=== PATIENT | male | born 1990 | race Two or more races ===

== ENCOUNTER → 2024-04-19 | Outpatient (CLI) | payer BC, MEDICAID, SELFPAY ==
[2024-04-19 10:44] LABS: Post Vasectomy Sperm Presence No Spermatozoa Seen (No Sperm)
== END | disposition home or self-care (01) ==
PROVIDERS: Referring Provider Urology; Visit Provider Urology
DX: Z30.2 Encounter for sterilization (principal)
CPT/HCPCS: 89310; 89321

== ENCOUNTER 2024-09-18 22:56 | Emergency (ER) | payer BC, SELFPAY ==
[2024-09-18 22:58] VITALS: BMI 26.6
[2024-09-18 23:35] VITALS: BP 147/83; PULSE 63; RESP 18; TEMP 36.6; O2SAT 99
--- NOTE | 2024-09-18 23:44 | EDNOTE_ITS ---
Upper Respiratory Inf. RME/HPI General Chief Complaint: General Adult/Misc Complain Stated Complaint: NOSE SWELLING, HEAD PAIN Time Seen by Provider: 09/18/24 23:12 Source: patient, RN notes reviewed and old records reviewed Arrival date/time: 09/18/24 22:56 Mode of arrival: ambulatory Limitations: no limitations RME / HPI RME / HPI Narrative: 34yom presents to ED for 3-day history of right sided nasal and sinus congestion. Reports redness surrounding right nare. No fever, cough, sob, n/v or dizziness reported. Patient endorses mild sinus headache. No medications or treatments since onset. Related Data Previous Rx's ?Medication ?Instructions ?Recorded tramadol 50 mg tablet 50 mg PO Q8H PRN pain #10 ta bs 09/10/23 fluticasone propionate 50 2 spray intranasal BID #16 g aga 09/18/24 mcg/actuation nasal spray,suspension (Flonase Allergy Relief) mupirocin 2 % topical ointment 1 applic topical BID #1 5 grams 09/18/24 pseudoephedrine HCl 120 mg 120 mg PO Q12H PRN nasal tablet,extended release (Sudafed congestion #12 tabs 12 Hour) Allergies Allergy/AdvReac Type Severity Reaction Status Date / Time No Known Allergies Allergy Verified 09/18/24 22:57 Review of Systems Review of Systems Systems Reviewed: All systems reviewed, normal except as documented Constitutional Constitutional: Denies chills, Denies fever(s) and Reports headache(s) ENT Ears, Nose, Mouth, and Throat: Denies dizziness, Reports headache(s), Reports nasal congestion, Denies neck pain and Reports sinus pain Cardiovascular Cardiovascular: Denies chest pain and Denies dyspnea Respiratory Respiratory: Denies cough and Denies dyspnea Gastrointestinal Gastrointestinal: Denies nausea and Denies vomiting Musculoskeletal Musculoskeletal: Denies neck pain Neurologic Neurologic: Denies dizziness and Reports headache(s) Past Medical History Surgical History OTHER SURGICAL HX: denies pshx Social History SMOKING STATUS: Never smoker SUBSTANCE USE: does not use ALCOHOL: Never Past Medical History Comments PMH COMMENT: denies pmhx ED Exam General Limitations: Present no limitations General appearance: Present alert and in no apparent distress Head Head exam: Present atraumatic and normocephalic Eye Eye exam: Present normal appearance, PERRL and EOMI ENT ENT exam: Present normal oropharynx, mucous membranes moist, TM's normal bilaterally and other (Mild UAC, right maxillary sinus ttp) Neck Neck exam: Present normal inspection and full ROM Chest Chest inspection: Present normal inspection and symmetric chest wall rise Respiratory Respiratory exam: Present normal lung sounds bilaterally and other (No wheezing, rales or rhonchi); Absent respiratory distress Cardiovascular Cardiovascular exam: Present regular rate and normal rhythm Extremities Exam Extremities exam: Present normal inspection and full ROM Neurological Exam Neurological exam: Present alert and oriented X3 Psychiatric Psychiatric exam: Present normal affect and normal mood Skin Skin exam: Present warm, dry, intact and normal color Course Quality Measures none Vital Signs Vital signs: Vital Signs Temperature 98 F 09/18/24 23:35 Pulse Rate 63 09/18/24 23:35 Respiratory Rate 18 09/18/24 23:35 Blood Pressure 147/83 H 09/18/24 23:35 Pulse Oximetry (%) 99 09/18/24 23:35 Oxygen Delivery Method Room Air 09/18/24 23:35 Upper Respiratory Infection MDM Narrative MDM Narrative:: 34yom presents to ED for 3-day history of right sided nasal and sinus congestion. Reports redness surrounding right nare. No fever, cough, sob, n/v or dizziness reported. Patient endorses mild sinus headache. No medications or treatments since onset. Exam findings c/w sinusitis and rhinitis. Patient is well-appearing, afebrile, vitals are stable. Discussed decongestant, nasal rinses, nasal steroid spray, antihistamine use. Motrin/tylenol prn pain. Stable for dc, RTED precautions given. Patient data External records reviewed:: [facility] previous records (12/28/23 ED visit for b/l hydrocele) Clinical information provided by:: patient Social determinants that could affect healthcare access:: other (specify) (poor access to healthcare) Patient has the following chronic illnesses:: none How is presenting disease/condition affected by chronic disease/condition?: no chronic disease Evaluation data The following diagnostics were reviewed and interpreted by me:: other (specify) (none) Lab and/or radiology exams considered but not ordered:: covid/flu: results would not affect treatment plan Interpretation Summary: na Medications / Prescriptions Medications or Prescriptions considered but not ordered:: none Medication administrations:: none Consultations Consultation(s) initiated? (list below): No Diagnosis Upper Respiratory Differential Diagnosis: upper respiratory infection, sinusitis, viral infection, bronchitis, influenza and pharyngitis Most likely diagnosis given after review of the tests above:: sinusitis, rhinitis Admission Indicated Admission indicated?: not indicated Admission Request Was there a request for admission?: No Disposition Plan Disposition Plan: Discharge Discharge Attestation Discharge Attestation: The patient and all family members were given an opportunity to ask questions and understood the discharge instructions. Discharge instructions specifically effects, indications for sooner follow up or return to the emergency department, and the expected course of current diagnosis. Patient condition: Stable Discharge Plan Plan Patient Disposition: HOME (Self Care) Patient condition on transfer: Stable Prescriptions/Referrals Prescriptions/Med Rec: New mupirocin 2 % ointment 1 applic topical BID Qty: 15 0RF fluticasone propionate [Flonase Allergy Relief] 50 mcg/actuation spray,suspension 2 spray intranasal BID Qty: 16 0RF Rx Instructions: administer into each nostril pseudoephedrine HCl [Sudafed 12 Hour] 120 mg tablet extended release 120 mg PO Q12H PRN (Reason: nasal congestion) Qty: 12 0RF No Action tramadol 50 mg tablet 50 mg PO Q8H PRN (Reason: pain) Qty: 10 0RF Problem List Clinical Impression: Infection of nose Patient/Caregiver Discharge Instructions Print Language: Jamaican Stand Alone Forms: Arielle Award Info., Patient Portal Info Letter PA/NARCOTICS AND VICE DETECTIVE Supervising Physician PA/NARCOTICS AND VICE DETECTIVE Supervising Physician: Wilberto
== END 2024-09-19 00:05 | disposition home or self-care (01) ==
LOC: SERX 23:53
PROVIDERS: Emergency Provider Emergency Medicine; PCP Internal Medicine
DX: B99.9 Unspecified infectious disease (principal)
CPT/HCPCS: 99281

== ENCOUNTER 2024-09-21 02:30 | Emergency (ER) | payer BC, SELFPAY ==
[2024-09-21 02:32] VITALS: BMI 26.6
[2024-09-21 02:41] VITALS: BP 120/74; PULSE 63; RESP 16; TEMP 37.4; O2SAT 99
--- NOTE | 2024-09-21 03:10 | PD.EDURI ---
Upper Respiratory Inf. RME/HPI General Chief Complaint: General Adult/Misc Complain Stated Complaint: NOSE INFECTION, CHILLS Time Seen by Provider: 09/21/24 02:52 Source: patient, RN notes reviewed and old records reviewed Arrival date/time: 09/21/24 02:30 Mode of arrival: ambulatory Limitations: no limitations RME / HPI RME / HPI Narrative: 34yom presents to ED for 4-day history of nasal congestion and sinus pain/headache. Patient was evaluated in ED Friday evening for same complaints and treated for sinusitis. Patient has taken 2 doses of antibiotic prior to tonight's visit. He also went to [facility] ED last night for same symptoms and was given the same diagnosis. Patient reports subjective fever and chills while lying in bed [facility], prompting return visit to ED. 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 Related Data Previous Rx's ?Medication ?Instructions ?Recorded tramadol 50 mg tablet 50 mg PO Q8H PRN pain #10 tabs 09/10/23 fluticasone propionate 50 2 spray intranasal BID #16 grams 09/18/24 mcg/actuation nasal spray,suspension (Flonase Allergy Relief) mupirocin 2 % topical ointment 1 applic topical BID #15 grams 09/18/24 pseudoephedrine HCl 120 mg 120 mg PO Q12H PRN nasal 09/18/24 tablet,extended release (Sudafed congestion #12 tabs 12 Hour) Allergies Allergy/AdvReac Type Severity Reaction Status Date / Time No Known Allergies Allergy Verified 09/18/24 22:57 Review of Systems Review of Systems Systems Reviewed: All systems reviewed, normal except as documented Constitutional Constitutional: Reports chills, Reports fever(s) (subjective) and Reports headache(s) (sinus) ENT Ears, Nose, Mouth, and Throat: Denies otalgia, Reports facial pain, Reports headache(s) (sinus), Reports nasal congestion, Denies neck pain, Reports sinus pain, Denies sore throat and Denies vertigo Cardiovascular Cardiovascular: Denies chest pain and Denies dyspnea Respiratory Respiratory: Denies cough and Denies dyspnea Gastrointestinal Gastrointestinal: Denies nausea and Denies vomiting Musculoskeletal Musculoskeletal: Denies neck pain Neurologic Neurologic: Reports headache(s) (sinus) and Denies vertigo Past Medical History Surgical History OTHER SURGICAL HX: denies pshx Social History SMOKING STATUS: Never smoker SUBSTANCE USE: does not use ALCOHOL: Never Past Medical History Comments PMH COMMENT: denies pmhx ED Exam General Limitations: Present no limitations General appearance: Present alert and in no apparent distress Head Head exam: Present atraumatic and normocephalic Eye Eye exam: Present normal appearance, PERRL and EOMI ENT ENT exam: Present normal oropharynx, mucous membranes moist, TM's normal bilaterally and other (Mild UAC, mild right maxillary sinus ttp) Neck Neck exam: Present normal inspection and full ROM Chest Chest inspection: Present normal inspection and symmetric chest wall rise Respiratory Respiratory exam: Present normal lung sounds bilaterally and other (No wheezing, rales or rhonchi); Absent respiratory distress Cardiovascular Cardiovascular exam: Present regular rate and normal rhythm Extremities Exam Extremities exam: Present normal inspection and full ROM Neurological Exam Neurological exam: Present alert and oriented X3 Psychiatric Psychiatric exam: Present anxious (mild) Skin Skin exam: Present warm, dry, intact and normal color Course Quality Measures none Vital Signs Vital signs: Vital Signs Temperature 99.4 F 09/21/24 02:41 Pulse Rate 63 09/21/24 02:41 Respiratory Rate 16 09/21/24 02:41 Blood Pressure 120/74 09/21/24 02:41 Pulse Oximetry (%) 99 09/21/24 02:41 Oxygen Delivery Method Room Air 09/21/24 02:41 Upper Respiratory Infection MDM Narrative MDM Narrative:: 34yom presents to ED for 4-day history of nasal congestion and sinus pain/headache. Patient was evaluated in ED Friday evening for same complaints and treated for sinusitis. Patient has taken 2 doses of antibiotic prior to [facility]'s visit. He also went to [facility] ED last night for same symptoms and was given the same diagnosis. Patient reports subjective fever and chills while lying in bed [facility], prompting return visit to ED. 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 Patient is well-appearing, afebrile, vitals are stable. Instructed to continue meds prescribed during 09/18 visit for sinusitis. Reassurance given to patient. Stable for dc, RTED precautions given. Patient data External records reviewed:: [facility] previous records (12/28/23 ED visit for bilateral hydrocele) Clinical information provided by:: patient Social determinants that could affect healthcare access:: other (specify) (poor access to healthcare) Patient has the following chronic illnesses:: none How is presenting disease/condition affected by chronic disease/condition?: no chronic disease Evaluation data The following diagnostics were reviewed and interpreted by me:: other (specify) (none) Lab and/or radiology exams considered but not ordered:: covid/flu: results would not affect treatment plan Interpretation Summary: na Medications / Prescriptions Medications or Prescriptions considered but not ordered:: none Medication administrations:: none Consultations Consultation(s) initiated? (list below): No Diagnosis Upper Respiratory Differential Diagnosis: upper respiratory infection, sinusitis, viral infection, bronchitis and influenza Most likely diagnosis given after review of the tests above:: sinusitis Admission Indicated Admission indicated?: not indicated Admission Request Was there a request for admission?: No Disposition Plan Disposition Plan: Discharge Discharge Attestation Discharge Attestation: The patient and all family members were given an opportunity to ask questions and understood the discharge instructions. Discharge instructions specifically effects, indications for sooner follow up or return to the emergency department, and the expected course of current diagnosis. Patient condition: Stable Discharge Plan Plan Patient Disposition: HOME (Self Care) Patient condition on transfer: Stable Prescriptions/Referrals Prescriptions/Med Rec: No Action mupirocin 2 % ointment 1 applic topical BID Qty: 15 0RF fluticasone propionate [Flonase Allergy Relief] 50 mcg/actuation spray,suspension 2 spray intranasal BID Qty: 16 0RF Rx Instructions: administer into each nostril pseudoephedrine HCl [Sudafed 12 Hour] 120 mg tablet extended release 120 mg PO Q12H PRN (Reason: nasal congestion) Qty: 12 0RF tramadol 50 mg tablet 50 mg PO Q8H PRN (Reason: pain) Qty: 10 0RF Problem List Clinical Impression: Sinusitis Patient/Caregiver Discharge Instructions Education Materials: ED Sinusitis (Antibiotic Treatment) Additional Instructions: Continue medications and antibiotic that were prescribed during prior visit Print Language: Indonesian Stand Alone Forms: Arielle Award Info., Patient Portal Info Letter PA/PRODUCTION TEAM ADVISOR Supervising Physician PA/PRODUCTION TEAM ADVISOR Supervising Physician: Samson
== END 2024-09-21 03:19 | disposition home or self-care (01) ==
LOC: SERX 03:14
PROVIDERS: Emergency Provider Emergency Medicine; PCP Internal Medicine
DX: J32.9 Chronic sinusitis, unspecified (principal)
CPT/HCPCS: 99281